=== PATIENT | male | born 1950 | race Caucasian/White ===

== ENCOUNTER 2017-02-03 13:50 | Outpatient (CLI) | payer MEDICARE | END 2017-02-03 23:59 | disposition home or self-care (01) | LOC: CT 13:50 | PROVIDERS: ATTEND Nurse Practitioner Acute Care | DX: N40.1 Benign prostatic hyperplasia with lower urinary tract symptoms (principal); N28.89 Other specified disorders of kidney and ureter; K57.30 Diverticulosis of large intestine without perforation or abscess without bleeding; J98.11 Atelectasis; I25.10 Atherosclerotic heart disease of native coronary artery without angina pectoris; I70.0 Atherosclerosis of aorta; M43.17 Spondylolisthesis, lumbosacral region; M43.16 Spondylolisthesis, lumbar region | CPT/HCPCS: 74178; J7050; Q9967 ==

== ENCOUNTER 2018-11-11 09:53 | Outpatient (CLI) | payer MEDICARE | END 2018-11-11 23:59 | disposition home or self-care (01) | LOC: RAD 09:53 | PROVIDERS: ATTEND Surgery | DX: J98.11 Atelectasis (principal); M47.814 Spondylosis without myelopathy or radiculopathy, thoracic region | CPT/HCPCS: 71046 ==